=== PATIENT | male | born 1975 | race Asian ===

== ENCOUNTER 2019-08-01 10:16 | Outpatient (CLI) | payer OTHER, SELFPAY ==
--- NOTE | 2019-08-01 10:20 | ECG_ITS ---
Measurements Intervals [place] Rate: 40 P: 72 IN: 191 QRS: 85 QRSD: 98 T: 52 QT: 457 QTc: 377 Interpretive Statements SINUS BRADYCARDIA VOLTAGE CRITERIA FOR LVH ST ELEVATION IN DIFFUSE LEADS- CONSIDER PERICARDITIS OR EARLY REPOLARIZATION ABNORMAL ECG Electronically Signed On 08-01-2019 11:46:54 CDT by Gurvinder Calderon D.O.
[2019-08-01 10:47] LABS: Basophils Absolute Auto 0.1 K/mm3 (0.0-0.1); Basophils Percent Auto 1.5 % (0.2-1.2); Eosinophils Absolute Auto 0.1 K/mm3 (0-0.3); Eosinophils Percent Auto 1.2 % (0-4.4); Hematocrit 42.4 % (42.0-52.0); Immature Granulocyte Absolute 0.01 K/mm3 (0.00-0.031); Immature Granulocyte Percent A 0.2 % (0-0.5); Lymphocytes Absolute Auto 2.14 K/mm3 (0.9-3.2); Lymphocytes Percent Auto 36.6 % (18.3-44.2); Mean Corpuscular Hemoglobin 29.5 pg (26-34); Mean Corpuscular Volume 89.3 fl (80-100); Mean Platelet Volume 11.7 fl (7.4-10.4); Monocytes Absolute Auto 0.3 K/mm3 (0.1-0.6); Monocytes Percent Auto 5.6 % (2.6-8.5); Neutrophils Absolute Auto 3.2 K/mm3 (1.3-6.7); Neutrophils Percent Auto 54.9 % (45.5-73.1); Platelet Count Result 206 k/mm3 (150-375); Red Blood Count 4.75 M/mm3 (4.6-6.20); Red Cell Distribution Width 12.7 % (11.5-14.5); White Blood Count 5.9 K/mm3 (4.5-10.0)
[2019-08-01 11:12] LABS: Alanine Aminotransferase 32 U/L (4-50); Albumin Level 5.1 g/dL (3.5-5.1); Alkaline Phosphatase 84 U/L (38-126); Aspartate Amino Transferase 44 U/L (17-59); Bilirubin,Total 0.8 mg/dL (0.2-1.3); Blood Urea Nitrogen 19 mg/dL (9-20); Calcium 9.6 mg/dL (8.4-10.2); Carbon Dioxide 27 mmol/L (22-30); Chloride 99 mmol/L (98-107); Estimated Glomerular Filt Rate > 60; Glucose 94 mg/dL (75-110); Potassium 3.9 mmol/L (3.4-5.0); Sodium 136 mmol/L (137-145)
[2019-08-01 11:34] LABS: Creatinine Urine 51.3 mg/dL
[2019-08-01 12:05] LABS: Vitamin D 25 Hydroxy 26.5 ng/mL
[2019-08-01 12:18] LABS: Hemoglobin A1C 5.7 % (<5.7)
[2019-08-01 12:34] LABS: Hepatitis C Virus Antibody Negative (Negative)
[2019-08-01 12:38] LABS: HAV RESULT Negative (Negative); Hepatitis B Core IgM Result Negative (Negative); Hepatitis B Surface Antigen Negative (Negative); Rubella IgG Antibody 36.6 IU/ML
[2019-08-01 12:38] LABS: MALB Creatinine Ratio < 11.7 mg/g (0-30); Microalbumin Urine Random < 6.0 mg/L (0-16.7)
[2019-08-01 12:55] LABS: Cholesterol 219 mg/dL (0-200); HDL Direct 85 mg/dL; Triglycerides 66 mg/dL (<150)
[2019-08-01 13:02] LABS: LDL Cholesterol Direct 110 mg/dL
[2019-08-03 18:25] LABS: Rubeola Measles IgG >300.00 AU/mL (>16.49)
== END 2019-08-01 10:17 | disposition home or self-care (01) ==
LOC: ANHLAB 10:20
PROVIDERS: PCP Internal Medicine; Visit Provider Internal Medicine
DX: Z00.00 Encounter for general adult medical examination without abnormal findings (principal); Z12.5 Encounter for screening for malignant neoplasm of prostate; R94.31 Abnormal electrocardiogram [ECG] [EKG]
CPT/HCPCS: 36415; 80053; 80061; 80074; 82043; 82306; 83036; 84153; 84443; 85025; 86735; 86762; 86765; 93005; G0103

== ENCOUNTER 2019-08-02 10:47 | Outpatient (CLI) | payer OTHER, SELFPAY ==
--- NOTE | ~2019-08-02 | XR_ITS ---
EXAMINATION: XR chest 2V EXAM DATE: 08/02/2019 11:34 INDICATION: Pericardial disease. TECHNIQUE: Frontal and lateral projections of the chest obtained and reviewed. There is no prior nicole dy for comparison. FINDINGS: The lungs are clear. There are no pleural effusions. The cardiomediastinal silhouette is within normal limits. There is no pneumothorax suspected. The bones and soft tissues are unremarkab le. IMPRESSION: Normal chest x-ray exam. Reviewed, dictated and finalized at location B. IMPRESSION: Normal chest x-ray exam.
--- NOTE | 2019-08-02 11:01 | ECG_ITS ---
Measurements Intervals [place] Rate: 40 P: 68 ND: 195 QRS: 78 QRSD: 95 T: 39 QT: 454 QTc: 372 Interpretive Statements SINUS BRADYCARDIA VOLTAGE CRITERIA FOR LVH ST ELEVATION IN DIFFUSE LEADS WITH PEAKED T WAVES- CONSIDER HYPERKALEMIA, I ISCHEMIA OR PERICARDITIS ABNORMAL ECG Electronically Signed On 08-02-2019 11:23:26 CDT by Gurvinder Calderon D.O.
[2019-08-02 11:50] LABS: Erythrocyte Sedimentation Rate 5 mm/hr (0-20)
[2019-08-05 12:30] LABS: CRP, High Sensitivity <0.3 mg/L (***)
[2019-08-07 00:30] LABS: Albumin 4.6 g/dL (3.8-4.8); Alpha 1 Globulin 0.2 g/dL (0.2-0.3); Alpha 2 Globulin 0.6 g/dL (0.5-0.9); Beta 1 Globulin 0.4 g/dL (0.4-0.6); Gamma Globulin 1.2 g/dL (0.8-1.7); Protein, Total 7.2 g/dL (6.1-8.1)
[2019-08-07 05:44] LABS: Creatinine, Random Urine 81 mg/dL (20-320); Total Protein/Creatinine Ratio 74 mg/g creat (22-128)
== END 2019-08-02 10:48 | disposition home or self-care (01) ==
PROVIDERS: PCP Internal Medicine; Visit Provider Internal Medicine
DX: R94.31 Abnormal electrocardiogram [ECG] [EKG] (principal); I31.9 Disease of pericardium, unspecified; I10 Essential (primary) hypertension; E88.09 Other disorders of plasma-protein metabolism, not elsewhere classified
CPT/HCPCS: 36415; 71046; 82570; 84155; 84156; 84165; 84166; 85652; 86038; 86141; 93005

== ENCOUNTER 2019-08-06 13:15 | Outpatient (CLI) | payer OTHER, SELFPAY ==
[2019-08-10 23:03] LABS: NIL 0.02 IU/mL; Quantiferon TB Plus, 1T NEGATIVE (NEGATIVE)
== END 2019-08-06 13:16 | disposition home or self-care (01) ==
PROVIDERS: PCP Internal Medicine; Visit Provider Internal Medicine
DX: I31.9 Disease of pericardium, unspecified (principal)
CPT/HCPCS: 36415; 86480

== ENCOUNTER 2020-07-31 12:24 | Outpatient (CLI) | payer OTHER, SELFPAY ==
--- NOTE | 2020-07-31 12:39 | ECG_ITS ---
Measurements Intervals [place] Rate: 43 P: 72 OR: 195 QRS: 84 QRSD: 98 T: 53 QT: 460 QTc: 389 Interpretive Statements SINUS BRADYCARDIA VOLTAGE CRITERIA FOR LVH ST ELEVATION IN ANTEROLATERAL LEADS WITH PEAKED T WAVES- CONSIDER HYPERKALEMIA, ISCHEMIA OR PERICARDITIS BASELINE ARTIFACT- I, II ABNORMAL ECG Electronically Signed On 07-31-2020 12:57:44 DIRECTOR OF ACCOUNTS RECEIVABLE by Gurvinder Calderon D.O.
== END 2020-07-31 12:25 | disposition home or self-care (01) ==
PROVIDERS: PCP Internal Medicine; Visit Provider Internal Medicine
DX: R00.1 Bradycardia, unspecified (principal); R94.31 Abnormal electrocardiogram [ECG] [EKG]
CPT/HCPCS: 93005

== ENCOUNTER 2020-09-30 07:54 | Outpatient (CLI) | payer OTHER, SELFPAY ==
--- NOTE | 2020-09-30 08:09 | ECHO_ITS ---
Patient Info Name: Rubi Damon Age: 45 years : 1975 Gender: Male Ht: 67 in Wt: 130 lbs BSA: 1.67 m2 HR: 45 bpm BP: 124 / 64 mmHg Heart Rhythm: Bradycardia Exam Date: 09/30/2020 8:12 AM Exam Location: [facility] Patient Status: Outpatient Admit Date: 09/30/2020 Staff Ordering Physician: Gurvinder Calderon DO Hospice Nurse: ARSALAN Attending Provider: Gurvinder Calderon DO Exam Type: CA echo doppler color flow Study Info Indications R94.31 - Abnormal electrocardiogram ECG EKG Complete two-dimensional, color flow and Doppler transthoracic echocardiogram is performed. Summary 1. Complete two-dimensional, color flow and Doppler transthoracic echocardiogram is performed. 2. Left ventricular chamber dimension is mildly enlarged. 3. Left ventricular systolic function is normal, estimated at 55-60%. 4. The left ventricular diastolic function is normal. 5. E/e' 5 is not elevated. 6. There is mild to moderate aortic valve regurgitation. 7. There is mild mitral valve regurgitation. 8. There is mild tricuspid valve regurgitation. 9. No pulmonary hypertension, estimated pulmonary arterial systolic pressure is 32 mmHg. 10. Normal inferior vena cava with <50% collapse upon inspiration consistent with elevated right atrial pressure, 10 mmHg. Left Ventricle E/e' 5 is not elevated. Left ventricular chamber dimension is mildly enlarged. Left ventricular systolic function is normal, estimated at 55-60%. The left ventricular diastolic function is normal. Right Ventricle Right ventricular chamber dimension is normal. Right ventricular systolic function is normal. Left Atria Left atrial chamber dimension is normal. Right Atria Right atrial chamber dimension is normal. Aortic Valve The aortic valve is trileaflet. There is no aortic valve stenosis. There is mild to moderate aortic valve regurgitation. Pulmonic Valve There is no pulmonic regurgitation. Mitral Valve There is no mitral valve stenosis. There is mild mitral valve regurgitation. Tricuspid Valve There is mild tricuspid valve regurgitation. No pulmonary hypertension, estimated pulmonary arterial systolic pressure is 32 mmHg. Pericardium/Pleural There is no pericardial effusion. Inferior Vena Cava Normal inferior vena cava with <50% collapse upon inspiration consistent with elevated right atrial pressure, 10 mmHg. Aorta The aortic root size at the sinus of Valsalva is normal. Left Ventricular Outflow Tract Name Value Normal LVOT 2D LVOT Diameter 2.2 cm LVOT Doppler LVOT Peak Gradient 5 mmHg LVOT Mean Gradient 3 mmHg LVOT VTI 26 cm LVOT VTI/AV VTI Ratio 0.6 LVOT Stroke Volume 98 ml LVOT CO 17.5 l/min LVOT CI 10.5 l/min/m2 Pulmonic Valve Name Value Normal
== END 2020-09-30 07:55 | disposition home or self-care (01) ==
PROVIDERS: PCP Internal Medicine; Visit Provider Internal Medicine Cardiovascular Disease
DX: R94.31 Abnormal electrocardiogram [ECG] [EKG] (principal); I08.3 Combined rheumatic disorders of mitral, aortic and tricuspid valves
CPT/HCPCS: 93306

== ENCOUNTER 2021-10-11 00:42 | Day surgery (SDC) | payer OTHER, SELFPAY ==
[2021-09-30 11:38] VITALS: BMI 21.2
--- NOTE | 2021-10-11 07:49 | P.PNAN_ITS ---
Anes - Initial Pre Proc Eval Procedure: Operation Date: 10/11/21 12:30 Proposed Procedures p Screening Colonoscopy - Harvey Flores MD Date/Time: 10/11/21 07:49 Surgeon: Harvey Flores MD Pre Op Diagnosis: neoplasm screening Patient Data Age: 46 Gender: M Height: 1.7 m Weight: 61.5 kg Allergies Allergy/AdvReac Type Severity Reaction Status Date / Time No Known Allergies Allergy Verified 10/11/21 10:29 Home Medications Medication Instructions Recorded Confirmed Type No Home Medications 08/10/21 09/30/21 History Patient hx anesthesia problems: none Family hx anesthesia problems: none Results Review: All pre-operative results and documents have been reviewed as part of the pre-operative evaluation. [facility] Past Medical History Medical History Herpetic lesions Open comedone Prostate cancer screening Well adult exam Family History Family History Father Hypertension Family history of elevated blood lipids Patient's father is in good health Mother Family history of heart disease in male family member before age 55 Hypertension Patient's mother is in good health Social History Social History Smoking status: Never smoker Alcohol intake: current Substance use: never Substance use type: does not use Living arrangements: with family Spiritual care concerns: No Anes - Eval Final PreProcedure Day of Procedure 10/11/21 07:49 Patient weight: normal Heart: regular rate and rhythm Lungs: clear to auscultation and normal air movement Airway: Mallampati scale class II Neurological: alert and oriented Last oral intake: >/= 8 hours ASA classification: II Emergent: no Anesthetic plan: proceed Anesthesia type and monitoring: general GIVS and standard monitoring Results Review: All pre-operative results and documents have been reviewed as part of the pre-operative evaluation. Informed Consent: The patient's anesthetic plan and its attendant risks and benefits were discussed with the patient/family/POA. Questions were solicited and answers provided to the satisfaction of the patient/family/POA.
[2021-10-11 10:30] VITALS: BP 127/73; PULSE 49; RESP 20; TEMP 36.2; O2SAT 100; BMI 19.8
[2021-10-11] MEDS: LACTATED RINGERS 1,000 ML 150 ML IV CONT (10:38)
--- NOTE | 2021-10-11 10:47 | PM.HPGS ---
History of Present Illness History of Present Illness Consent: Risks, benefits, and alternatives have been discussed and questions answered. Patient agrees to proceed with procedure. Chief complaint: neoplasm screening Narrative: Rubi Damon is a 46 year old male here for first screening colonoscopy Review of Systems Constitutional: Constitutional: Denies headache(s) and Denies weakness Eyes: Eyes: Denies blurry vision ENT: Reports Normal hearing present, Denies headache(s) and Denies neck pain Cardiovascular: Cardiovascular: Denies chest pain and Denies dyspnea Respiratory: Respiratory: Denies dyspnea Gastrointestinal: Gastrointestinal: Reports no additional gastrointestinal complaints Genitourinary: Genitourinary: Denies dysuria Musculoskeletal: Musculoskeletal: Denies neck pain Integumentary/Breasts: Skin/Breast: Denies dry skin Neurologic: Reports Normal hearing present, Denies headache(s) and Denies weakness Psychiatric: Psychiatric: Denies anxiety Endocrine: Endocrine: Denies change in body appearance Hematologic/Lymphatic: Hematologic/Lymphatic: Denies easy bleeding Allergic/Immunologic: Allergic/Immunologic: Denies urticaria PMF Past Medical History Medical History Herpetic lesions Open comedone Prostate cancer screening Well adult exam Family History Family History Father Hypertension Family history of elevated blood lipids Patient's father is in good health Mother Family history of heart disease in male family member before age 55 Hypertension Patient's mother is in good health Social History Social History Smoking status: Never smoker Alcohol intake: current Substance use: never Substance use type: does not use Living arrangements: with family Spiritual care concerns: No Meds Home Medications and Allergies Home Medications Medication Instructions Recorded Confirmed Type No Home Medications 08/10/21 09/30/21 History Allergies Allergy/AdvReac Type Severity Reaction Status Date / Time No Known Allergies Allergy Verified 10/11/21 10:29 Vital Signs Vital Signs - 24 hr 10/11/21 10:30 Temperature 97.1 F L Pulse Rate 49 L Respiratory Rate 20 Blood Pressure 127/73 Pulse Oximetry 100 Exam Const: General: comfortable and no acute distress HENMT: General nose exam: Normal nares present Eyes: General: appearance normal, both eyes and all related structures Neck: Neck: no JVD Resp: Auscultation: clear to auscultation bilaterally Cardio: Rate: regular rate Rhythm: regular rhythm GI: Inspection: non-distended GI Palp: Yes Soft to palpation Skin: General skin exam: normal color Neuro: General: gait normal Speech: normal speech Extrem: General: normal to inspection Psych: Mental Status: mental status grossly normal Assessment and Plan Assessment and plan (1) Encounter for screening colonoscopy: Code(s): Z12.11 - Encounter for screening for malignant neoplasm of colon Status: Acute Assessment and Plan: colonoscopy
[2021-10-11 11:02] VITALS: BP 95/57; PULSE 61; RESP 19; O2SAT 100
[2021-10-11 11:12] VITALS: BP 105/57; PULSE 56; RESP 19; O2SAT 97
[2021-10-11 11:24] VITALS: BP 104/68; PULSE 54; RESP 19; O2SAT 97
== END 2021-10-11 11:34 | disposition home or self-care (01) ==
PROVIDERS: PCP Internal Medicine; Visit Provider Internal Medicine Gastroenterology
PROC: 0DJD8ZZ Inspection of Lower Intestinal Tract, Via Natural or Artificial Opening Endoscopic (ICD-10-PCS; CPT 45378; principal; 2021-10-11 12:30)
DX: Z12.11 Encounter for screening for malignant neoplasm of colon (principal); K64.8 Other hemorrhoids
CPT/HCPCS: 45378; J2704; J7120

== ENCOUNTER 2022-07-22 13:30 | Outpatient (RCR) | payer OTHER, SELFPAY ==
--- NOTE | 2022-07-01 15:28 | OTOPEVAL1 ---
Assessment and note entered by Haroldo Agustin, CHARLI/Briana, CHT Evaluation Information Assessment Status Evaluation Diagnosis left index finger strain Onset ~3-4 months ago Subjective Information Patient sustained a hyperextension injury to the left index DIP joint about 3-4 months ago. He presents today with pain and stiffness and restricts his ability to flex the joint. 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 The patient tends to avoid using the finger for activities and has gotten used to holding the finger in extension with hand use. Reported Pain Level Pain Score 0: Self Report Additional Pain Score Comments No pain at rest. Pain increases to 4-5/10 with active ROM. Assessment OT Clinical Summary Patient referred to outpatient hand therapy with a stiff index finger DIP joint following a hyperextension injury. Skilled OT indicated for HEP instruction and progression, modalities for pain and improved tissue extensibility, active/ passive ROM, and progression to strengthening to facilitate optimal functional use of the left hand . Plan of Care Interventions Therapeutic Exercise,Manual Therapy,Therapeutic Activities,Hot Pack/Cold Pack OT Services Indicated Yes Treatment Frequency and 1x/week for 4 weeks. Duration These treatments will address the objective and functional deficits as defined above. The patient will be advanced safely and appropriately in order for the patient to progress towards his/her prior level of function. Additional exercises will be introduced and as well as a comprehensive home exercise program upon discharge, if needed, ?to ensure carryover of functional gains achieved in the clinic. This treatment plan has been reviewed and agreement upon by the patient.
--- NOTE | 2022-07-22 14:10 | OTOPDC ---
Assessment and note entered by Haroldo Agustin, ANSELMOR/Briana, CHT Evaluation Information Assessment Status Discharge Diagnosis left index finger strain Onset ~4-5 months ago Subjective Information Patient reports good compliance with HEP - active/ passive ROM and venipuncturist/pinch strengthening with resistive putty. He reports improved flexibility of the finger. States he is now able to use the finger when holding a steering wheel, typing, and gripping objects. He continues to be hesitant with pinching, such as using that finger to tie his shoes or when opening his putty container in the clinic. He continues to require cues to incorporate the index finger during functional tasks. Stressed the importance of use on continuing to see progress. He verbalizes concern about injuring his finger if he uses it. Reported Pain Level Pain Score 0: Self Report Additional Pain Score Comments No pain at rest. Pain increases to 5/10 with exercises. Assessment OT Clinical Summary Patient referred to outpatient hand therapy with a stiff index finger DIP joint following a hyperextension injury. Since the start of care, DIP flexion improved from 30 degrees to 45 degrees. Passive DIP flexion is measuring 60 degrees. He is now able to make a fist with the index finger touching the palm. He continues to have a 2 cm gap when attempting to make a hook fist. HEP was reviewed today. Stressed the importance of low load, prolonged holds/stretch and continuing to use the finger as much as possible to continue to see progress. No further skilled OT indicated at this time. D/C with patient independent with HEP. Plan of Care OT Services Indicated No
== END 2022-09-14 11:13 | disposition home or self-care (01) ==
LOC: ANHOT 13:30
PROVIDERS: PCP Internal Medicine; Visit Provider Nurse Practitioner
DX: M79.642 Pain in left hand (principal)
CPT/HCPCS: 97018; 97110; 97165